=== PATIENT | female | born 1950 | race Two or more races ===

== ENCOUNTER 2020-10-26 08:23 | Outpatient (CLI) | payer OTHER ==
[2020-11-06] MEDS ORDERED: DOCU-270 PO (10:04)
[2020-11-06] MEDS ORDERED: DIPH25CA49 PO (10:04)
[2020-11-06] MEDS ORDERED: ACET325T53 PO (10:04)
[2020-11-06] MEDS ORDERED: ASPI-992 PO (10:04)
[2020-11-06] MEDS ORDERED: FAMO20TA80 PO (10:04)
[2020-11-06] MEDS ORDERED: HYDR-3972 PO (10:04)
[2020-11-06] MEDS ORDERED: ONDA4VIA23 IV (10:04)
[2020-11-06] MEDS ORDERED: BISA10SU11 RC (10:04)
== END 2020-10-26 23:59 | disposition home or self-care (01) ==
LOC: LAB 08:23
PROVIDERS: ATTEND Specialist
DX: Z01.818 Encounter for other preprocedural examination (principal); Z20.822 Contact with and (suspected) exposure to COVID-19
CPT/HCPCS: C9803; U0003

== ENCOUNTER 2020-11-01 09:08 | Inpatient (IN) | payer OTHER ==
[~2020-11-01] VITALS: Ht 157.5 cm; Wt 68.5 kg
[2020-11-01] MEDS ORDERED: diphenhydrAMINE HCL 25 MG CAPSULE PO PRN (11:30)
[2020-11-01] MEDS ORDERED: MENTHOL/CETYLPYRD (CEPACOL) 1 LOZ LOZENGE PO PRN (11:30)
[2020-11-01] MEDS ORDERED: HYDROCODONE/APAP 5/325MG TABLET PO PRN (11:30)
[2020-11-01] MEDS ORDERED: MORPHINE SULFATE INJ 4 MG/ML DISP.SYRIN IM/IV/SC PRN (11:30)
[2020-11-01] MEDS ORDERED: MAG HYDROX/AL HYDROX/SIMETH 30 ML UDC PO PRN (11:30)
[2020-11-01] MEDS ORDERED: ONDANSETRON HCL/PF 4 MG/2 ML VIAL IV PRN (11:30)
[2020-11-01] MEDS ORDERED: HYDROCODONE/APAP 10/325MG TABLET PO PRN (11:30)
[2020-11-01] MEDS ORDERED: ROCURONIUM BROMIDE 50 MG/5 ML ONE (11:32)
[2020-11-01] MEDS ORDERED: FENTANYL PF 100MCG/2ML AMPUL ONE (11:32)
[2020-11-01] MEDS ORDERED: HYDROMORPHONE INJ 2 MG/ML DISP.SYRIN ONE (11:33)
[2020-11-01] MEDS ORDERED: TRANEXAMIC ACID 3,000 MG in SODIUM CHLORIDE IRRIG SOLUTION 70 ML IR ONE (12:00)
[2020-11-01] MEDS ORDERED: LABETALOL HCL IV 100MG VIAL ONE (14:13)
[2020-11-01] MEDS ORDERED: hydrALAZINE HCL IV 20 MG VIAL ONE (14:26)
[2020-11-01] MEDS ORDERED: ONDANSETRON HCL/PF 4 MG/2 ML VIAL ONE (14:33)
--- NOTE | 2020-11-01 15:30 | NUR ---
MS RN NOTE ADMITTED FROM OR IS A 70 YO FEMALE ALERT AND ORIENTED WHO UNDERWENT PROCEDURE PERFORMED BY DR. MENJIVAR. PATIENT ALERT AND ORIENTED, WITH O2 AT 2LPM VIA NASAL CANULA FOR COMFORT. PATIENT WITH IV ACCESS ON LEFT AC G 20, WITH LR RUNING AT 100ML/HR FROM OR. PATIENT DENIES PAIN OR DISCOMFORT. WITH SOME NAUSEA BUT ZOFRAN GIVEN AT OR. COMFORT MEASURSE PROVIDED. VITAL SIGNS CHECKED AND WNL. WITH DRESSING ON RIGHT HIP DRY AND INTACT. PATIENT MAY RESUME DIET PER MD. WILL CONTINUE TO MONITOR PATIENT.
[2020-11-01] MEDS ORDERED: ONDANSETRON HCL/PF 4 MG/2 ML VIAL IVP PRN (16:30)
[2020-11-01] MEDS ORDERED: DOCUSATE SODIUM 100 MG CAPSULE PO PRN (16:30)
[2020-11-01] MEDS ORDERED: BISACODYL SUPP (10 MG) 10 MG/SUPP.RECT SUPP.RECT RC PRN (16:30)
[2020-11-01] MEDS ORDERED: ACETAMINOPHEN 325 MG TABLET PO PRN (16:30)
[2020-11-01] MEDS ORDERED: SENNOSIDES 8.6 MG TABLET PO PRN ×2 (16:30→17:30)
[2020-11-01] MEDS ORDERED: ZOLPIDEM TARTRATE 5 MG TABLET PO PRN (17:30)
[2020-11-01] MEDS: DOCUSATE SODIUM 100 MG CAPSULE PO SCH (18:22)
--- NOTE | 2020-11-01 19:00 | NUR ---
MS RN NOTE ADMITTED FROM OR IS A 70 YO FEMALE ALERT AND ORIENTED WHO UNDERWENT PROCEDURE PERFORMED BY DR. MENJIVAR. PATIENT ALERT AND ORIENTED, WITH O2 AT 2LPM VIA NASAL CANULA FOR COMFORT. PATIENT WITH IV ACCESS ON LEFT AC G 20, WITH LR RUINING AT 100ML/HR FROM OR. PATIENT DENIES PAIN OR DISCOMFORT. WITH SOME NAUSEA BUT ZOFRAN GIVEN AT OR. COMFORT MEASURE PROVIDED. VITAL SIGNS CHECKED AND WNL. WITH DRESSING ON RIGHT HIP DRY AND INTACT. WILL ENDORSE PATIENT FOR CONTINUITY OF CARE.
--- NOTE | 2020-11-01 19:15 | NUR ---
RN OPENING NOTE PATIENT IN BED, TALKING WITH SOMEONE ON THE PHONE. PATIENT IS A/O X 4, ABLE TO MAKE NEEDS KNOWN. CURRENTLY ON RA, TOLERATING WITH BREATHING EVEN AND UNLABORED. L AC 20 G PATENT AND INTACT, LR 100 ML/HR ONGOING. DRESSING ON THE RIGHT HIP C/D/I. PATIENT REPORTS NO PAIN AT THIS TIME YET, NO N/V. SAFETY MEASURES IN PLACE, CALL LIGHT WITHIN REACH, SIDE RAILS UP, ABDUCTOR PILLOW IN USE. WILL MONITOR PATIENT CLOSELY.
[2020-11-01] MEDS: IV LR 1000 ML 1,000 ML IV PRN (19:43)
[2020-11-01 20:03] VITALS: BP 140/74
[2020-11-01] MEDS: FAMOTIDINE (20 MG) 20 MG TABLET PO SCH ×2 (20:37→20:50)
--- NOTE | 2020-11-01 20:50 | NUR ---
RN NOTE PATIENT REFUSED PEPCID SHE STATES THAT HER ALKALINE WATER HELPS WITH STOMACH ACIDS ALREADY AND SHE DOESNT NEED IT. Addendum: 11/01/20 at 2126 by ALETA DUNCAN RN EDUCATION PROVIDED REGARDING MEDICATION HOWEVER PATIENT STILL REFUSES.
[2020-11-02] MEDS: ANCEF 1 GM/50 ML D5W IV SCH ×2 (00:16→07:42)
--- NOTE | 2020-11-02 03:15 | NUR ---
RN NOTE BLADDER SCANNED PATIENT, 522 ML VOLUME FOUND. WILL NOTIFY MD FOR URINARY RETENTION.
--- NOTE | 2020-11-02 04:00 | NUR ---
RN NOTE DR. NEWMAN ORDERED IN AND OUT CATHETERIZATION AND CONTINUE TO MONITOR FOR URINARY RETENTION.
[2020-11-02] MEDS: IV LR 1000 ML 1,000 ML IV PRN (05:55)
[2020-11-02 06:16] LABS: ALBUMIN 2.6 g/dL (3.4-5.0); BILIRUBIN,TOTAL 0.6 mg/dL (0.2-1.0); CREATININE 0.6 mg/dL (0.6-1.3); MAGNESIUM 1.9 mg/dL (1.8-2.4); PHOSPHORUS 3.4 mg/dL (2.5-4.9); POTASSIUM 4.5 mmol/L (3.5-5.1); TOTAL PROTEIN, SERUM 5.6 g/dL (6.4-8.2)
[2020-11-02 06:24] LABS: HEMATOCRIT 34 % (33-45); HEMOGLOBIN 11.4 g/dL (11.5-14.8); LYMPHOCYTES # (AUTO) 0.4 K/uL (0.8-4.8); LYMPHOCYTES % (AUTO) 4.5 % (20.0-44.0); MEAN CORPUSCULAR HGB CONC 34 g/dl (31.0-36.0); MEAN CORPUSCULAR VOLUME 93 fL (82-100); MONOCYTES # (AUTO) 0.8 K/uL (0.1-1.30); NEUTROPHILS # (AUTO) 7.6 K/uL (1.8-8.9); NEUTROPHILS % (AUTO) 86.5 % (43.0-81.0); PLATELET COUNT (AUTO) 198 K/uL (150-450); RED BLOOD CELL COUNT(AUTO) 3.62 MIL/uL (4.0-5.2); WHITE BLOOD COUNT (AUTO) 8.8 K/uL (4.3-11.0)
[2020-11-02 06:29] LABS: THYROID STIMULATING HORMONE 0.145 uIU/mL (0.358-3.74)
--- NOTE | 2020-11-02 07:38 | NUR ---
MS RN OPENING NOTE RECEIVED PATIENT RESTING IN BED, PATIENT IS A/O X 4, ABLE TO MAKE NEEDS KNOWN. CURRENTLY ON RA, TOLERATING WITH BREATHING EVEN AND UNLABORED. L AC 20 G PATENT AND INTACT, LR 100 ML/HR ONGOING. DRESSING ON THE RIGHT HIP C/D/I. PATIENT REPORTS NO PAIN AT THIS TIME YET, NO N/V. SAFETY MEASURES IN PLACE, CALL LIGHT WITHIN REACH, SIDE RAILS UP, ABDUCTOR PILLOW IN USE. WILL CONTINUE TO MONITOR
--- NOTE | 2020-11-02 07:38 | NUR ---
RN CLOSING NOTE PATIENT BREATHING EVEN AND UNLABORED, SAFETY MEASURES MAINTAINED. STRAIGHT CATH PATIENT 600 ML OUT. WILL KEEP MONITORING FOR URINARY RETENTION. ABDUCTION PILLOW PRESENT. ENDORSED PATIENT TO MORNING SHIFT RN.
--- NOTE | 2020-11-02 07:42 | NUR ---
RN NOTE PATIENT REFUSED MORNING ATB, PATIENT STATED SHE ALREADY HAD A BAG AND DID NOT NEED MORE. EXPLAINED RISK AND BENEFITS X 2. WILL CONTINUE TO MONITOR
[2020-11-02 08:00] VITALS: BP 126/74
[2020-11-02] MEDS: DOCUSATE SODIUM 100 MG CAPSULE PO SCH ×2 (08:31→16:04)
[2020-11-02] MEDS: ASPIRIN 325 MG TABLET PO SCH (08:31)
[2020-11-02] MEDS: FAMOTIDINE (20 MG) 20 MG TABLET PO SCH ×2 (08:31→21:00)
[2020-11-02] MEDS: ACETAMINOPHEN 325 MG TABLET PO PRN ×3 (08:34→19:47)
--- NOTE | 2020-11-02 11:03 | NUR ---
RN NOTE PATIENT VOIDED, 400ML, PATIENT REFUSED TO BE BLADDER SCANNED AT THIS TIME, ASKED TILL LATER. WILL CONTINUE TO MONITOR
--- NOTE | 2020-11-02 14:29 | NUR ---
RN NOTE IV ACCESS NOTED TO BE LEAKING, ASSESSED. IV REMOVED CATHETER TIP IN PLACE. REINSERTED IV ACCESS TO RAC # 20 GAUGE PATENT AND INTACT.
[2020-11-02 16:00] VITALS: BP 147/77
--- NOTE | 2020-11-02 18:46 | NUR ---
MS RN CLOSING NOTE PATIENT RESTING IN BED, PATIENT IS A/O X 4, ABLE TO MAKE NEEDS KNOWN. CURRENTLY ON RA, TOLERATING WITH BREATHING EVEN AND UNLABORED. R AC 20 G PATENT AND INTACT, LR 100 ML/HR ONGOING. DRESSING ON THE RIGHT HIP C/D/I. PATIENT REPORTS NO PAIN AT THIS TIME YET, NO N/V. ALL MEDICATIONS REFUSED DURING SHIFT, MD AWARE NO CHANGES AT THIS TIME. SAFETY MEASURES IN PLACE, CALL LIGHT WITHIN REACH, SIDE RAILS UP, ABDUCTOR PILLOW IN USE. WILL ENDORSE TO ONCOMING SHIFT
--- NOTE | 2020-11-02 19:25 | NUR ---
RN NOTES PATIENT RESTING IN BED, PATIENT IS A/O X 4, ABLE TO MAKE NEEDS KNOWN. CURRENTLY ON RA TOLERATING WITH BREATHING EVEN AND UNLABORED. R AC 20 G PATENT AND INTACT, LR 100 ML/HR ONGOING. DRESSING ON THE RIGHT HIP C/D/I. PATIENT REPORTS NO PAIN AT THIS TIME YET, NO N/V. SAFETY MEASURES IN PLACE, CALL LIGHT WITHIN REACH, SIDE RAILS UP, ABDUCTOR PILLOW IN USE.WILL CONTINUE TO MONITOR.
[2020-11-02 20:00] VITALS: BP_SYST 138; BP_SYST 168; BP_DIAS 68; BP_DIAS 78
[2020-11-03 06:46] LABS: BASOPHILS % (AUTO) 0.2 % (0.0-2.0); HEMATOCRIT 33 % (33-45); HEMOGLOBIN 11.3 g/dL (11.5-14.8); LYMPHOCYTES # (AUTO) 0.5 K/uL (0.8-4.8); LYMPHOCYTES % (AUTO) 5.7 % (20.0-44.0); MEAN CORPUSCULAR HGB CONC 34 g/dl (31.0-36.0); MEAN CORPUSCULAR VOLUME 92 fL (82-100); MONOCYTES # (AUTO) 0.7 K/uL (0.1-1.30); MONOCYTES % (AUTO) 8.3 % (2.0-12.0); NEUTROPHILS # (AUTO) 7.5 K/uL (1.8-8.9); NEUTROPHILS % (AUTO) 85.8 % (43.0-81.0); PLATELET COUNT (AUTO) 177 K/uL (150-450); RED BLOOD CELL COUNT(AUTO) 3.59 MIL/uL (4.0-5.2); WHITE BLOOD COUNT (AUTO) 8.8 K/uL (4.3-11.0)
--- NOTE | 2020-11-03 06:48 | NUR ---
RN NOTES PATIENT RESTING IN BED, PATIENT IS A/O X 4, ABLE TO MAKE NEEDS KNOWN. CURRENTLY ON RA TOLERATING WITH BREATHING EVEN AND UNLABORED. DRESSING ON THE RIGHT HIP. PATIENT REPORTS NO PAIN AT THIS TIME YET, NO N/V. SAFETY MEASURES IN PLACE, CALL LIGHT WITHIN REACH, SIDE RAILS UP, ABDUCTOR PILLOW IN USE.WILL ENDORSE TO DAY SHIFT NURSE.
[2020-11-03 07:11] LABS: CALCIUM, SERUM 8.2 mg/dL (8.5-10.1); CREATININE 0.6 mg/dL (0.6-1.3); PHOSPHORUS 2.4 mg/dL (2.5-4.9); POTASSIUM 3.6 mmol/L (3.5-5.1)
--- NOTE | 2020-11-03 07:44 | NUR ---
RN OPENING NOTE- RECEIVED PATIENT RESTING IN BED, PATIENT IS A/O X 4, ABLE TO MAKE NEEDS KNOWN. CURRENTLY ON RA, TOLERATING WITH BREATHING EVEN AND UNLABORED. L AC 20 G PATENT AND INTACT, LR 100 ML/HR ONGOING. DRESSING ON THE RIGHT HIP C/D/I. PATIENT DENIES PAIN AT THIS TIME YET, NO N/V. SAFETY MEASURES IN PLACE, CALL LIGHT WITHIN REACH, SIDE RAILS UP, ABDUCTOR PILLOW IN USE. WILL CONTINUE TO MONITOR
[2020-11-03 08:00] VITALS: BP 162/94
[2020-11-03] MEDS: ASPIRIN 325 MG TABLET PO SCH (09:31)
[2020-11-03] MEDS: DOCUSATE SODIUM 100 MG CAPSULE PO SCH ×2 (09:31→17:21)
[2020-11-03] MEDS: FAMOTIDINE (20 MG) 20 MG TABLET PO SCH ×2 (09:31→21:36)
[2020-11-03] MEDS ORDERED: hydrALAZINE HCL IV 20 MG VIAL IV PRN (11:00)
[2020-11-03] MEDS: ACETAMINOPHEN 325 MG TABLET PO PRN (14:14)
--- NOTE | 2020-11-03 14:14 | NUR ---
RN NOTE- C/O GENERALIZED DISCOMFORT. TYLENOL 650 MG GIVEN
[2020-11-03] MEDS ORDERED: K PHOS NEUTRAL 250 MG TABLET PO ONE (15:30)
[2020-11-03 16:00] VITALS: BP 137/82
[2020-11-03 16:01] VITALS: BP 155/104
[2020-11-03] MEDS: IV LR 1000 ML 1,000 ML IV PRN (18:52)
--- NOTE | 2020-11-03 19:17 | NUR ---
RN CLOSING NOTE- PT IN BED, ALERT COOPERATIVE. IVF TO RAC W LR @ 100/HR. PT MED COMPLIANT. OOB TO BR W ASSIST. NEEDS ATTENDED. VS STABLE. SIDE RAILS UP, BED LOCKED, CALL LIGHT CLOSE.
[2020-11-03 20:00] VITALS: BP 152/68
--- NOTE | 2020-11-03 20:00 | NUR ---
RECEIVED PATIENT IN BED, ALERT/ORIENTED X4, STABLE ON 2LPM VIA NC, NO COMPLAIN OF PAIN, S/P RIGHT HIP ORIF, DRESSING, INTACT. PER AM NURSE, VOIDING VIA TOILET. AMBULATES USING FWW. SCD IN PLACE, NEEDS ATTENDED, FALL PRECAUTION, WILL CONTINUE TO MONITOR
[2020-11-03 20:34] VITALS: BP 157/68
[2020-11-04 06:33] LABS: BASOPHILS % (AUTO) 0.3 % (0.0-2.0); EOSINOPHILS % (AUTO) 0.3 % (0.0-6.0); HEMATOCRIT 29 % (33-45); LYMPHOCYTES # (AUTO) 0.6 K/uL (0.8-4.8); LYMPHOCYTES % (AUTO) 8.4 % (20.0-44.0); MEAN CORPUSCULAR HGB CONC 35 g/dl (31.0-36.0); MEAN CORPUSCULAR VOLUME 92 fL (82-100); MONOCYTES # (AUTO) 0.7 K/uL (0.1-1.30); MONOCYTES % (AUTO) 9.8 % (2.0-12.0); NEUTROPHILS # (AUTO) 5.9 K/uL (1.8-8.9); NEUTROPHILS % (AUTO) 81.2 % (43.0-81.0); PLATELET COUNT (AUTO) 161 K/uL (150-450); RED BLOOD CELL COUNT(AUTO) 3.16 MIL/uL (4.0-5.2); WHITE BLOOD COUNT (AUTO) 7.3 K/uL (4.3-11.0)
--- NOTE | 2020-11-04 06:41 | NUR ---
S/P REMOVAL OF CANNULATED SCREW TO RIGHT HIP ARTHROPLASTY. STABLE ON ROOM AIR, MINIMAL COMPLAIN OF PAIN, DID NOT REQUEST ANY PAIN MEDICATION. DRESSING INTACT, VS STABLE, DR. OQUENDO PAIN MANAGEMENT MD, ANTICOAGULANT WHEN CLEARED BY ORTHO, ENCOURAGE AMBULATION
[2020-11-04 06:49] LABS: CALCIUM, SERUM 7.8 mg/dL (8.5-10.1); CREATININE 0.4 mg/dL (0.6-1.3); MAGNESIUM 1.8 mg/dL (1.8-2.4); PHOSPHORUS 2.4 mg/dL (2.5-4.9); POTASSIUM 3.2 mmol/L (3.5-5.1)
--- NOTE | 2020-11-04 07:25 | NUR ---
RN OPENING NOTE RECEIVED PATIENT IN THE BED. A/O X 4. ON ROOM AIR, SATURATING WELL AT 96%. NO SOB NOTED. IN NO APPARENT DISTRESS. DENIES ANY PAIN OR DISCOMFORT AT THIS TIME. IV ACCESS ON R AC #20 G, INTACT AND PATENT. SAFETY MEASURES MAINTAINED. BED IN LOWEST POSITION, BRAKES LOCKED. SIDE RAILS UP X2. CALL LIGHT WITHIN REACH. WILL CONTINUE PLAN OF CARE.
[2020-11-04] MEDS ORDERED: MAGNESIUM HYDROXIDE 30 ML UDC PO PRN (07:30)
[2020-11-04] MEDS ORDERED: POTASSIUM CHLORIDE 20 MEQ TAB.PRT.SR PO ONE (07:30)
[2020-11-04] MEDS: FAMOTIDINE (20 MG) 20 MG TABLET PO SCH ×2 (08:54→20:07)
[2020-11-04] MEDS: ASPIRIN 325 MG TABLET PO SCH (08:54)
[2020-11-04] MEDS: DOCUSATE SODIUM 100 MG CAPSULE PO SCH ×2 (08:54→17:38)
[2020-11-04 09:23] VITALS: BP 155/92
[2020-11-04] MEDS ORDERED: K PHOS NEUTRAL 250 MG TABLET PO ONE (11:30)
--- NOTE | 2020-11-04 13:28 | NUR ---
RN NOTE ENDORSED PT TO RN ERIN SCHWAB
[2020-11-04 16:00] VITALS: BP 150/80
--- NOTE | 2020-11-04 18:00 | NUR ---
POTASSIUM AND PHOSPHOROUS REPLACEMENTS GIVEN BEFORE BEING ENDORSED TO ME.
[2020-11-04 20:00] VITALS: BP 160/95
--- NOTE | 2020-11-04 20:00 | NUR ---
MS/RN OPENING NOTE RECEIVED PATIENT RESTING IN BED. AWAKE, ALERT AND ORIENTED X 4. ABLE TO MAKE NEEDS KNOWN. DENIES PAIN AT THIS TIME. CONTINUES ON O2 3L VIA NC WITH NO S/SX OF RESPIRATORY DISTRESS NOTED. IV ACCESS TO RIGHT AC #20G INTACT, PATENT AND SALINE LOCKED. CALL LIGHT WITHIN REACH. ASPIRATION, FALL AND SAFETY PRECAUTIONS MAINTAINED. WILL CONTINUE TO MONITOR.
--- NOTE | 2020-11-05 06:10 | NUR ---
MS/RN CLOSING NOTE PATIENT CURRENTLY SLEEPING IN BED. ALERT AND ORIENTED X 4. ABLE TO MAKE NEEDS KNOWN. DENIES PAIN AT THIS TIME. CONTINUES ON ROOM AIR WITH NO S/SX OF RESPIRATORY DISTRESS NOTED. IV ACCESS TO RIGHT AC #20G INTACT, PATENT AND SALINE LOCKED. CALL LIGHT WITHIN REACH. ASPIRATION, FALL AND SAFETY PRECAUTIONS MAINTAINED. WILL ENDORSE PLAN OF CARE TO ONCOMING SHIFT.
--- NOTE | 2020-11-05 07:30 | NUR ---
RN OPENING NOTE RECEIVED PATIENT IN BED. A/O X4. ON ROOM AIR, SATURATING WELL AT 97%. NO SOB NOTED. IN NO APPARENT DISTRESS. DENIES ANY PAIN OR DISCOMFORT AT THIS TIME. IV ACCESS ON R AC #20 G, INTACT AND PATENT. SAFETY MEASURES MAINTAINED. BED IN LOWEST POSITION, BRAKES LOCKED. SIDE RAILS UP X2. CALL LIGHT WITHIN REACH. WILL CONTINUE PLAN OF CARE.
[2020-11-05] MEDS: ASPIRIN 325 MG TABLET PO SCH (08:11)
[2020-11-05] MEDS: FAMOTIDINE (20 MG) 20 MG TABLET PO SCH ×2 (08:11→21:07)
[2020-11-05] MEDS: DOCUSATE SODIUM 100 MG CAPSULE PO SCH ×2 (08:11→16:38)
--- NOTE | 2020-11-05 15:54 | NUR ---
RN NOTE PATIENT'S IV GOT INFILTRATED. PT REFUSED TO HAVE ACCESS FOR NOW. EXPLAINED RISKS AND BENEFITS. PT VERBALIZED UNDERSTANDING.
--- NOTE | 2020-11-05 18:59 | NUR ---
RN CLOSING NOTE PATIENT RESTING IN BED. A/O X4. ON ROOM AIR, SATURATING WELL AT 98%. NO SOB NOTED. NO S/S OF RESPIRATORY DISTRESS. NO REPORTS OF ANY PAIN OR DISCOMFORT AT THIS TIME. DUE MEDS GIVEN ORDERED. ALL NEEDS HAVE BEEN MET AND ATTENDED. SAFETY MEASURES MAINTAINED. BED IN LOWEST POSITION, BRAKES LOCKED. SIDE RAILS UP X2. KEPT CALL LIGHT WITHIN REACH. WILL ENDORSE CONTINUITY OF CARE TO ONCOMING SHIFT.
--- NOTE | 2020-11-05 19:20 | NUR ---
MS/RN OPENING NOTE RECEIVED PATIENT RESTING IN BED. AWAKE, ALERT AND ORIENTED X 4. ABLE TO MAKE NEEDS KNOWN. DENIES PAIN AT THIS TIME. CONTINUES ON ROOM AIR WITH NO S/SX OF RESPIRATORY DISTRESS NOTED. NO IV ACCESS AT THIS TIME. PATIENT CONTINUING TO REFUSE IV ACCESS. MD IS AWARE. CALL LIGHT WITHIN REACH. ASPIRATION, FALL AND SAFETY PRECAUTIONS MAINTAINED. WILL CONTINUE TO MONITOR.
[2020-11-05 20:00] VITALS: BP 148/79
--- NOTE | 2020-11-06 06:10 | NUR ---
MS/RN CLOSING NOTE PATIENT CURRENTLY RESTING IN BED. AWAKE, ALERT AND ORIENTED X 4. ABLE TO MAKE NEEDS KNOWN. DENIES PAIN AT THIS TIME. CONTINUES ON ROOM AIR WITH NO S/SX OF RESPIRATORY DISTRESS NOTED. NO IV ACCESS AT THIS TIME. PATIENT CONTINUING TO REFUSE IV ACCESS. MD IS AWARE. CALL LIGHT WITHIN REACH. ASPIRATION, FALL AND SAFETY PRECAUTIONS MAINTAINED. WILL ENDORSE PLAN OF CARE TO ONCOMING SHIFT.
--- NOTE | 2020-11-06 07:32 | NUR ---
RN OPENING NOTE RECEIVED PATIENT IN BED. A/O X4. ON ROOM AIR. NO SOB NOTED. NO S/S OF RESPIRATORY DISTRESS. DENIES ANY PAIN OR DISCOMFORT AT THIS TIME. SAFETY MEASURES MAINTAINED. BED IN LOWEST POSITION, BRAKES LOCKED. SIDE RAILS UP X2. CALL LIGHT WITHIN REACH. WILL CONTINUE PLAN OF CARE.
[2020-11-06 08:00] VITALS: BP 138/109
[2020-11-06] MEDS: FAMOTIDINE (20 MG) 20 MG TABLET PO SCH ×2 (08:10→20:54)
[2020-11-06] MEDS: DOCUSATE SODIUM 100 MG CAPSULE PO SCH ×2 (08:10→17:25)
--- NOTE | 2020-11-06 08:10 | NUR ---
RN NOTE PATIENT DROPPED DOCUSATE (COLACE) MED. PULLED OUT ANOTHER 1 IN THE OMNICELL.
[2020-11-06] MEDS: ASPIRIN 325 MG TABLET PO SCH (08:27)
[2020-11-06] MEDS ORDERED: FAMO20TA80 PO (10:04)
[2020-11-06] MEDS ORDERED: ONDA4VIA23 IV (10:04)
[2020-11-06] MEDS ORDERED: HYDR-3972 PO (10:04)
[2020-11-06] MEDS ORDERED: DOCU-270 PO (10:04)
[2020-11-06] MEDS ORDERED: ASPI-992 PO (10:04)
[2020-11-06] MEDS ORDERED: ACET325T53 PO (10:04)
[2020-11-06] MEDS ORDERED: DIPH25CA49 PO (10:04)
[2020-11-06] MEDS ORDERED: BISA10SU11 RC (10:04)
[2020-11-06 16:00] VITALS: BP 126/75
--- NOTE | 2020-11-06 17:59 | NUR ---
RN CLOSING NOTE PATIENT RESTING IN BED. A/O X4. ON ROOM AIR. NO SOB NOTED. NO S/S OF RESPIRATORY DISTRESS. DENIES ANY PAIN OR DISCOMFORT AT THIS TIME. DUE MEDS GIVEN ORDERED. ALL NEEDS HAVE BEEN MET AND ATTENDED. SAFETY MEASURES MAINTAINED. BED IN LOWEST POSITION, BRAKES LOCKED. SIDE RAILS UP X2. CALL LIGHT WITHIN REACH. WILL ENDORSE CONTINUITY OF CARE TO ONCOMING SHIFT.
--- NOTE | 2020-11-06 19:30 | NUR ---
RN OPENING NOTES RECEIVED PATIENT ON BED, AWAKE AND A/O X4. ON ROOM AIR. NO SOB NOTED. NOT IN DISTRESS. WITH NO COMPLAINTS OF PAIN OR DISCOMFORT AT THIS TIME. SAFETY MEASURES MAINTAINED. BED ON LOWEST AND LOCKED POSITION. SIDE RAILS UP X2. CALL LIGHT WITHIN REACH. WILL CONTINUE TO MONITOR.
[2020-11-06 20:00] VITALS: BP 136/79
--- NOTE | 2020-11-07 07:06 | NUR ---
MS RN CLOSING NOTES PATIENT RESTING IN BED AND A/O X4. ON ROOM AIR. NO SOB NOTED. NOT IN DISTRESS. ABLE TO MAKE NEEDS KNOWN. WITH NO COMPLAINTS OF PAIN OR DISCOMFORT THROUGHOUT THE SHIFT. DUE MEDS GIVEN ORDERED. SAFETY MEASURES IN PLACED. CALL LIGHT WITHIN REACH. BED ON LOWEST AND LOCKED POSITION. SIDE RAILS UP X2. WILL ENDORSE TO NEXT SHIFT FOR [facility].
--- NOTE | 2020-11-07 07:32 | NUR ---
MS/RN OPENING NOTES RECEIVED PATIENT ON BED AWAKE, ALERT AND ORIENTED X4. PATIENT IN NO APPARENT RESPIRATORY DISTRESS NOTED. NO COMPLAINED OF PAIN NOTED AT THIS TIME. WILL CONTINUE TO MONITOR.
[2020-11-07 08:00] VITALS: BP 139/88
[2020-11-07] MEDS: DOCUSATE SODIUM 100 MG CAPSULE PO SCH ×2 (08:26→17:30)
[2020-11-07] MEDS: ASPIRIN 325 MG TABLET PO SCH (08:26)
[2020-11-07] MEDS: FAMOTIDINE (20 MG) 20 MG TABLET PO SCH ×2 (08:26→21:02)
[2020-11-07 16:00] VITALS: BP 134/75
--- NOTE | 2020-11-07 19:01 | NUR ---
MS/RN CLOSING NOTES PATIENT IS ALERT AND ORIENTED X4. PATIENT IS ON ROOM AIR SATURATION 96%. PATIENT IN NO APPARENT RESPIRATORY DISTRESS NOTED. NO COMPLAINED OF PAIN AT THIS TIME. SEEN AND EXAMINED BY MD WITH ORDERS MADE AND CARRIED OUT. ALL DUE MEDICATIONS WAS GIVEN. NO IV ACCESS PATIENT REFUSED MD WAS AWARE. SAFETY PRECAUTIONS WAS IN PLACED. BED IN LOWEST POSITION AND LOCKED. SIDERAILS UP X2. CALL LIGHT WITHIN REACH. WILL ENDORSED TO BEHAVIORAL HEALTH CONSULTANT FOR [facility].
[2020-11-07 20:00] VITALS: BP 139/88
--- NOTE | 2020-11-07 20:00 | NUR ---
MS RN CLOSING NOTE RECEIVED PT AWAKE IN BED. A/O X4. PT IS STABLE ON ROOM AIR. NO SOB OR S/S OF RESPIRATORY DISTRESS NOTED. PT HAS NO C/O PAIN OR DISCOMFORT AT THIS TIME. NO IV ACCESS D/T PT REFUSAL. EDUCATED ON RISKS AND BENEFITS OF REFUSING IV ACCESS. PT VERBALIZED UNDERSTANDING. AWARE. DRESSING ON RIGHT HIP INCISION IS C/D/I WITH NO SIGNS OF BLEEDING. SAFETY PRECAUTIONS MAINTAINED. BED IN LOWEST LOCKED POSITION, HOB ELEVATED, SIDE RAILS UP X2. CALL LIGHT AND TABLE WITHIN REACH. WILL CONTINUE WITH PLAN OF CARE. Addendum: 11/08/20 at 0658 by CONRADO OVERTON RN MS RN OPENING NOTE RECEIVED PT AWAKE IN BED. A/O X4. PT IS STABLE ON ROOM AIR. NO SOB OR S/S OF RESPIRATORY DISTRESS NOTED. PT HAS NO C/O PAIN OR DISCOMFORT AT THIS TIME. NO IV ACCESS D/T PT REFUSAL. EDUCATED ON RISKS AND BENEFITS OF REFUSING IV ACCESS. PT VERBALIZED UNDERSTANDING. AWARE. DRESSING ON RIGHT HIP INCISION IS C/D/I WITH NO SIGNS OF BLEEDING. SAFETY PRECAUTIONS MAINTAINED. BED IN LOWEST LOCKED POSITION, HOB ELEVATED, SIDE RAILS UP X2. CALL LIGHT AND TABLE WITHIN REACH. WILL CONTINUE WITH PLAN OF CARE.
--- NOTE | 2020-11-08 06:58 | NUR ---
MS RN CLOSING NOTE PT IS AWAKE IN BED. A/O X4. PT IS STABLE ON ROOM AIR. NO SOB OR S/S OF RESPIRATORY DISTRESS NOTED. PT HAS NO C/O PAIN OR DISCOMFORT AT THIS TIME. NO IV ACCESS D/T PT REFUSAL. EDUCATED ON RISKS AND BENEFITS OF REFUSING IV ACCESS. PT VERBALIZED UNDERSTANDING. MD AWARE. DRESSING ON RIGHT HIP INCISION IS C/D/I WITH NO SIGNS OF BLEEDING. ALL NEEDS HAVE BEEN MET. SAFETY PRECAUTIONS MAINTAINED AT ALL TIMES. BED IN LOWEST LOCKED POSITION, HOB ELEVATED, SIDE RAILS UP X2. CALL LIGHT AND TABLE WITHIN REACH. WILL ENDORSE TO ONCOMING NURSE FOR [facility].
--- NOTE | 2020-11-08 07:50 | NUR ---
MS/RN OPENING NOTES RECEIVED PATIENT ON BED AWAKE ALERT AND ORIENTED X4. PATIENT IS ON ROOM AIR. PATIENT IN NO APPARENT RESPIRATORY DISTRESS NOTED. NO COMPLAINED OF PAIN AT THIS TIME. WILL CONTINUE TO MONITOR.
[2020-11-08 08:00] VITALS: BP 135/83
[2020-11-08] MEDS: FAMOTIDINE (20 MG) 20 MG TABLET PO SCH ×2 (09:00→21:00)
[2020-11-08] MEDS: DOCUSATE SODIUM 100 MG CAPSULE PO SCH ×2 (09:26→16:57)
[2020-11-08] MEDS: ASPIRIN 325 MG TABLET PO SCH (09:26)
[2020-11-08 16:00] VITALS: BP 139/87
--- NOTE | 2020-11-08 19:19 | NUR ---
MS/RN CLOSING NOTES PATIENT IS ALERT AND ORIENTED X4. PATIENT IS ON ROOM AIR. PATIENT IN NO APPARENT RESPIRATORY DISTRESS NOTED. NO COMPLAINED OF PAIN AT THIS TIME. SEEN AND EXAMINED BY MD WITH ORDERS MADE AND CARRIED OUT. ALL DUE MEDICATIONS WAS GIVEN. NO IV ACCESS PATIENT REFUSED MD WAS AWARE. SAFETY PRECAUTIONS WAS IN PLACED. BED IN LOWEST POSITION AND LOCKED. SIDERAILS UP X2. CALL LIGHT WITHIN REACH. PATIENT IS FOR DISCHARGE TODAY. WILL ENDORSED TO VISUAL MERCHANDISING ASSISTANT FOR [facility].
[2020-11-08 19:50] VITALS: BP 160/103
[2020-11-08] MEDS ORDERED: hydrALAZINE HCL 10 MG TABLET PO ONE (20:00)
--- NOTE | 2020-11-08 20:00 | NUR ---
RN NOTES PATIENT IS ALERT AND ORIENTED X4. PATIENT IS ON ROOM AIR. PATIENT IN NO APPARENT RESPIRATORY DISTRESS NOTED. NO COMPLAINED OF PAIN AT THIS TIME. SAFETY PRECAUTIONS WAS IN PLACED. BED IN LOWEST POSITION AND LOCKED. SIDERAILS UP X2. CALL LIGHT WITHIN REACH. PATIENT IS FOR DISCHARGE TODAY. PT FOR PYROTECHNIST WITH AMBULANCE TO [facility] PT BLOOD PRESSURE HIGH 160/103 MD NOTIFIED WITH ORDERS FOR HYDRALAZINE 10MG P.O ONCE. REASSESSED BP TILL HIGH. AM [facility] TO RESCHEDULE PYROTECHNIST ONCE PT VITAL SIGNS STABLE.
--- NOTE | 2020-11-08 22:00 | NUR ---
RN NOTES SBP RECHECKED PT BP NOW 128/84. CALLED AM [facility] FOR [employer]. PT WILL BE PICKED UP AT 11-11;30 PM. PT AWAKE. CALLED AND GAVE REPORT TO JUNE RN. WILL CONTINUE TO MONITOR.
--- NOTE | 2020-11-09 00:40 | NUR ---
RN NOTES PT PICKED UP BY [facility] PT IN STABLE CONDITION.
== END 2020-11-09 00:40 | DRG 468 ==
LOC: DS 09:08 → MED 14:02
PROVIDERS: ADMIT Registered Nurse; ATTEND Registered Nurse
PROC: 0SR90JZ Replacement of Right Hip Joint with Synthetic Substitute, Open Approach (ICD-10-PCS; principal; 2020-11-01)
PROC: 0SP90JZ Removal of Synthetic Substitute from Right Hip Joint, Open Approach (ICD-10-PCS; 2020-11-01)
DX: M16.11 Unilateral primary osteoarthritis, right hip (principal); E66.9 Obesity, unspecified; Z68.28 Body mass index [BMI] 28.0-28.9, adult; Y99.0 Civilian activity done for income or pay; X58.XXXA Exposure to other specified factors, initial encounter; E05.90 Thyrotoxicosis, unspecified without thyrotoxic crisis or storm; Z96.641 Presence of right artificial hip joint
CPT/HCPCS: 36415; 80048-TC; 80053-TC; 80061-TC; 83735-TC; 84100-TC; 84439-TC; 84443-TC; 85025-TC; 86850-TC; 87081-TC; 88305-TC; 88311-TC; 97110-TC; 97112-TC; 97116-TC; 97530-TC; A4217; A6209; A6402; C1713; C1776; G0378; J0360; J0690; J1100; J1170; J2405; J2704; J3010; J3490; J7030; J7060; J7120